=== PATIENT | male | born 1965 | race Asian ===

== ENCOUNTER 2024-05-07 12:57 | Inpatient (IN) | payer OTHER ==
[~2024-05-07] VITALS: Ht 167.6 cm; Wt 72.0 kg
[2024-05-07 13:30] LABS: COVID AG,FIA SOURCE NASAL SWAB
[2024-05-07 13:49] LABS: INFLUENZA TYPE A NEGATIVE FOR TYPE A (NEGATIVE); INFLUENZA TYPE B NEGATIVE FOR TYPE B (NEGATIVE); SARS-COV2 (COVID) ANTIGEN,FIA Negative (Negative)
[2024-05-07 14:31] LABS: BASOPHILS % (AUTO) 0.8 % (0.0-2.0); EOSINOPHILS % (AUTO) 1.9 % (1.0-6.0); HEMATOCRIT 40.1 % (41-53); HEMOGLOBIN 12.9 g/dL (13.5-17.5); LYMPHOCYTES # (AUTO) 0.6 K/uL (1.0-4.8); LYMPHOCYTES % (AUTO) 13.5 % (22.0-44.0); MEAN CORPUSCULAR HEMOGLOBIN 29.5 pg (26.0-34.0); MEAN CORPUSCULAR HGB CONC 32.1 G/dL (31.0-37.0); MEAN CORPUSCULAR VOLUME 92 fL (80-100); MONOCYTES # (AUTO) 0.4 K/uL (0.1-1.0); MONOCYTES % (AUTO) 9.1 % (2.0-9.0); NEUTROPHILS # (AUTO) 3.4 K/uL (1.8-7.7); NEUTROPHILS % (AUTO) 74.7 % (40.0-70.0); PLATELET COUNT (AUTO) 217 K/uL (150-450); RED BLOOD CELL COUNT(AUTO) 4.37 MIL/uL (4.50-5.90); RED CELL DISTRIBUTION WIDTH 15.6 % (11.5-14.5); WHITE BLOOD COUNT (AUTO) 4.6 K/uL (4.5-11.0)
[2024-05-07] MEDS: LORazepam 2 MG/ML VIAL IM ONE (14:31)
[2024-05-07] MEDS: METOPROLOL TARTRATE 25 MG TABLET PO ONE (14:31)
[2024-05-07 14:45] LABS: ANION GAP 13 mmol/L (8-16); CARBON DIOXIDE 21 mmol/L (22-29); CHLORIDE 106 mmol/L (98-107); CREATININE 1.24 mg/dL (0.60-1.30); GLOMERULAR FILTR. RATE CALC 60 mL/min (>60); GLUCOSE,RANDOM 133 mg/dL (70-110); POTASSIUM 3.6 mmol/L (3.5-5.1); SODIUM SERUM 140 mmol/L (136-145); UREA NITROGEN, BLOOD 21 mg/dL (7-18)
[2024-05-07 14:49] LABS: TROPONIN I-HIGH SENSITIVITY 36 ng/L (<76)
[2024-05-07 14:58] LABS: ALCOHOL, BLOOD (SERUM) < 3 mg/dL (0-10)
[2024-05-07] MEDS: FUROSEMIDE 20 MG/2 ML VIAL IVP ONE (15:58)
[2024-05-07] MEDS: ASPIRIN 325 MG TABLET PO ONE (15:58)
[2024-05-07] MEDS: METOPROLOL TARTRATE 5 MG/5 ML VIAL IVP ONE (15:58)
[2024-05-07] MEDS ORDERED: ONDANSETRON HCL 4 MG/2 ML VIAL IVP PRN (16:30)
[2024-05-07] MEDS ORDERED: MAGNESIUM HYDROXIDE SUSPENSION 30 ML UDCUP PO PRN (16:30)
[2024-05-07] MEDS ORDERED: BISACODYL 10 MG RECTAL RECTAL SUPPOSITORY PR PRN (16:30)
[2024-05-07] MEDS ORDERED: ZOLPIDEM TARTRATE 5 MG TABLET PO PRN (16:30)
[2024-05-07] MEDS ORDERED: ACETAMINOPHEN 325 MG TABLET PO PRN (16:30)
[2024-05-07 17:47] LABS: TROPONIN I-HIGH SENSITIVITY 36 ng/L (<76)
[2024-05-07 21:18] VITALS: BP 162/105; PULSE 98; RESP 20; TEMP 98; O2SAT 100
[2024-05-07] MEDS: DOCUSATE SODIUM 100 MG CAPSULE PO SCH (21:59)
[2024-05-07] MEDS: FUROSEMIDE 20 MG/2 ML VIAL IVP SCH (21:59)
[2024-05-07] MEDS: CARVEDILOL 6.25 MG TABLET PO SCH (22:00)
[2024-05-08] VITALS (8 sets, daily range): BP systolic 130–167; BP diastolic 75–113; PULSE 85–109; RESP 18–20; TEMP 97.7–98; O2SAT 97–100
[2024-05-08] MEDS: NITROGLYCERIN 2% (1 GM=INCH) OINTMENT PACKET TP SCH (00:52)
[2024-05-08] MEDS: HEPARIN SODIUM,PORCINE 5,000 UNITS/ML VIAL SQ SCH (00:52)
[2024-05-08 07:42] LABS: BASOPHILS % (AUTO) 1.7 % (0.0-2.0); EOSINOPHILS % (AUTO) 3.9 % (1.0-6.0); HEMATOCRIT 41.5 % (41-53); HEMOGLOBIN 13.3 g/dL (13.5-17.5); LYMPHOCYTES # (AUTO) 0.8 K/uL (1.0-4.8); LYMPHOCYTES % (AUTO) 19.5 % (22.0-44.0); MEAN CORPUSCULAR HEMOGLOBIN 29.6 pg (26.0-34.0); MEAN CORPUSCULAR VOLUME 93 fL (80-100); MONOCYTES # (AUTO) 0.4 K/uL (0.1-1.0); MONOCYTES % (AUTO) 9.2 % (2.0-9.0); NEUTROPHILS # (AUTO) 2.8 K/uL (1.8-7.7); NEUTROPHILS % (AUTO) 65.7 % (40.0-70.0); PLATELET COUNT (AUTO) 220 K/uL (150-450); RED BLOOD CELL COUNT(AUTO) 4.48 MIL/uL (4.50-5.90); RED CELL DISTRIBUTION WIDTH 15.4 % (11.5-14.5); WHITE BLOOD COUNT (AUTO) 4.3 K/uL (4.5-11.0)
[2024-05-08 08:03] LABS: CALCIUM, TOTAL 8.2 mg/dL (8.8-10.5); CREATININE 1.29 mg/dL (0.60-1.30); POTASSIUM 3.5 mmol/L (3.5-5.1)
[2024-05-08 08:08] LABS: TROPONIN I-HIGH SENSITIVITY 42 ng/L (<76)
[2024-05-08] MEDS: LISINOPRIL 5 MG TABLET PO SCH (08:09)
[2024-05-08] MEDS: ASPIRIN 81 MG DR TABLET PO SCH (08:10)
[2024-05-08] MEDS: PANTOPRAZOLE SODIUM 40 MG DR TABLET PO SCH (08:10)
[2024-05-08] MEDS ORDERED: SODIUM CHLORIDE 0.9% 250 ML IV ONE (11:11)
[2024-05-08] MEDS: AMIODARONE HCL 150 MG in DEXTROSE 5%-WATER 97 ML IV ONE (11:24)
[2024-05-08 23:31] LABS: ALCOHOL, URINE DRUG SCREEN NEGATIVE (NEGATIVE); AMPHET/METH SCREEN,URINE POSITIVE (NEGATIVE); BARBITURATE SCREEN, URINE NEGATIVE (NEGATIVE); BENZODIAZEPINES SCREEN,URINE NEGATIVE (NEGATIVE); CANNABINOID SCREEN,URINE NEGATIVE (NEGATIVE); COCAINE SCREEN,URINE NEGATIVE (NEGATIVE); METHADONE SCREEN, URINE NEGATIVE (NEGATIVE); OPIATE SCREEN,URINE NEGATIVE (NEGATIVE); PHENCYCLIDINE SCREEN,URINE NEGATIVE (NEGATIVE)
[2024-05-09] VITALS (8 sets, daily range): BP systolic 133–158; BP diastolic 79–108; PULSE 81–134; RESP 18–20; TEMP 97.6–98.2; O2SAT 95–100
[2024-05-09 06:12] LABS: BASOPHILS % (AUTO) 1.2 % (0.0-2.0); EOSINOPHILS % (AUTO) 3.6 % (1.0-6.0); HEMATOCRIT 43.9 % (41-53); HEMOGLOBIN 14.3 g/dL (13.5-17.5); LYMPHOCYTES # (AUTO) 0.8 K/uL (1.0-4.8); LYMPHOCYTES % (AUTO) 15.8 % (22.0-44.0); MEAN CORPUSCULAR HEMOGLOBIN 29.9 pg (26.0-34.0); MEAN CORPUSCULAR HGB CONC 32.5 G/dL (31.0-37.0); MEAN CORPUSCULAR VOLUME 92 fL (80-100); MONOCYTES # (AUTO) 0.6 K/uL (0.1-1.0); MONOCYTES % (AUTO) 10.4 % (2.0-9.0); NEUTROPHILS # (AUTO) 3.7 K/uL (1.8-7.7); PLATELET COUNT (AUTO) 230 K/uL (150-450); RED BLOOD CELL COUNT(AUTO) 4.76 MIL/uL (4.50-5.90); RED CELL DISTRIBUTION WIDTH 15.5 % (11.5-14.5); WHITE BLOOD COUNT (AUTO) 5.3 K/uL (4.5-11.0)
[2024-05-09 06:52] LABS: CREATININE 1.3 mg/dL (0.60-1.30); POTASSIUM 3.4 mmol/L (3.5-5.1)
[2024-05-09 06:53] LABS: CALCIUM, TOTAL 8.5 mg/dL (8.8-10.5)
[2024-05-09] MEDS: CARVEDILOL 6.25 MG TABLET PO SCH (08:41)
[2024-05-09] MEDS: FUROSEMIDE 20 MG TABLET PO SCH (08:44)
[2024-05-09] MEDS: POTASSIUM CHLORIDE 20 MEQ ER TABLET PO ONE (12:35)
[2024-05-09] MEDS: CARVEDILOL 25 MG TABLET PO SCH (20:40)
[2024-05-09] MEDS: APIXABAN 5 MG TABLET PO SCH (20:40)
[2024-05-09] MEDS ORDERED: CARVEDILOL 12.5 MG TABLET PO SCH (21:00)
[2024-05-10 03:29] VITALS: BP 157/100; PULSE 109; RESP 19; TEMP 97.6; O2SAT 98
[2024-05-10 06:51] LABS: BASOPHILS % (AUTO) 0.8 % (0.0-2.0); EOSINOPHILS % (AUTO) 3.5 % (1.0-6.0); HEMATOCRIT 46.8 % (41-53); HEMOGLOBIN 15.2 g/dL (13.5-17.5); LYMPHOCYTES % (AUTO) 19.7 % (22.0-44.0); MEAN CORPUSCULAR HEMOGLOBIN 29.8 pg (26.0-34.0); MEAN CORPUSCULAR HGB CONC 32.5 G/dL (31.0-37.0); MEAN CORPUSCULAR VOLUME 92 fL (80-100); MONOCYTES # (AUTO) 0.5 K/uL (0.1-1.0); MONOCYTES % (AUTO) 9.2 % (2.0-9.0); NEUTROPHILS # (AUTO) 3.3 K/uL (1.8-7.7); NEUTROPHILS % (AUTO) 66.8 % (40.0-70.0); PLATELET COUNT (AUTO) 253 K/uL (150-450); RED BLOOD CELL COUNT(AUTO) 5.11 MIL/uL (4.50-5.90)
[2024-05-10 07:11] LABS: CALCIUM, TOTAL 8.8 mg/dL (8.8-10.5); CREATININE 1.24 mg/dL (0.60-1.30); POTASSIUM 3.9 mmol/L (3.5-5.1)
[2024-05-10 08:29] VITALS: BP 158/93; PULSE 97; RESP 18; TEMP 98; O2SAT 97
[2024-05-10] MEDS: SPIRONOLACTONE 25 MG TABLET PO SCH (09:27)
[2024-05-10] MEDS: DIGOXIN 250 MCG/ML 2 ML AMP IVP ONE (10:02)
[2024-05-10 11:31] VITALS: BP 120/83; PULSE 120; RESP 18; TEMP 98.3; O2SAT 96
[2024-05-10 16:37] VITALS: BP 126/98; PULSE 122; RESP 18; TEMP 98.4; O2SAT 97
[2024-05-10 19:47] VITALS: BP 154/99; PULSE 95; RESP 16; TEMP 97.8; O2SAT 98
[2024-05-11 00:02] VITALS: BP 169/98; PULSE 92; RESP 16; TEMP 97.6; O2SAT 96
[2024-05-11] MEDS: CloNIDine HCL 0.1 MG TABLET PO ONE (00:56)
[2024-05-11 05:23] VITALS: BP 114/85; PULSE 124; RESP 18; TEMP 98; O2SAT 97
[2024-05-11 08:07] VITALS: BP 134/78; PULSE 122; RESP 18; TEMP 98.2; O2SAT 98
[2024-05-11] MEDS: SPIRONOLACTONE 25 MG TABLET PO SCH (08:55)
[2024-05-11] MEDS: LISINOPRIL 10 MG TABLET PO SCH (08:59)
[2024-05-11 11:17] VITALS: BP 136/95; PULSE 125; RESP 16; TEMP 98; O2SAT 97
[2024-05-11] MEDS: DILTIAZEM HCL 5 MG/ML 5 ML VIAL IVP ONE (12:21)
[2024-05-11] MEDS ORDERED: FURO20TA4 PO (14:10)
[2024-05-11] MEDS ORDERED: DILT-39 PO (14:10)
[2024-05-11] MEDS ORDERED: APIX5TAB PO (14:10)
[2024-05-11] MEDS ORDERED: SPIR-37 PO (14:10)
[2024-05-11] MEDS ORDERED: LISI-893 PO (14:10)
[2024-05-11] MEDS ORDERED: CARV25 PO (14:10)
== END 2024-05-11 14:30 | disposition home or self-care (01) | DRG 194 ==
LOC: EMS 12:57 → EDH 17:29 → 5N 21:03 → 5S 05-10 22:48
PROVIDERS: ADMIT Internal Medicine; ATTEND Internal Medicine
DX: I11.0 Hypertensive heart disease with heart failure (principal); J96.01 Acute respiratory failure with hypoxia; I42.9 Cardiomyopathy, unspecified; I50.43 Acute on chronic combined systolic (congestive) and diastolic (congestive) heart failure; I48.92 Unspecified atrial flutter; Z20.822 Contact with and (suspected) exposure to COVID-19; F15.10 Other stimulant abuse, uncomplicated; I07.1 Rheumatic tricuspid insufficiency; I48.91 Unspecified atrial fibrillation; E78.5 Hyperlipidemia, unspecified; E87.6 Hypokalemia; Z59.00 Homelessness unspecified; Z79.01 Long term (current) use of anticoagulants; Z91.199 Patient's noncompliance with other medical treatment and regimen due to unspecified reason
CPT/HCPCS: 71045; 80048; 80307; 83880; 84484; 85025; 87804; 93005; 93306; 99285; G0378; G0480; J0282; J1160; J1644; J1940; J2060; J3490; J7050; J7060; 36415-L1; 36415-TC